=== PATIENT | male | born 1970 | race Caucasian/White ===

== ENCOUNTER 2017-02-08 11:09 | Emergency (ER) | payer SELFPAY ==
[~2017-02-08] VITALS: Ht 172.7 cm; Wt 81.3 kg
[2017-02-08 11:12] VITALS: BP 106/85; PULSE 78; TEMP 98.3
== END 2017-02-08 13:25 | disposition home or self-care (01) ==
LOC: COL.ER 11:09
DX: M72.2 Plantar fascial fibromatosis (principal)

== ENCOUNTER 2017-11-07 09:39 | Emergency (ER) | payer SELFPAY ==
[~2017-11-07] VITALS: Ht 172.7 cm; Wt 78.7 kg
[2017-11-07 09:47] VITALS: TEMP 98.6
[2017-11-07] MEDS ORDERED: ULTRAM 50MG TAB50 MG PO (11:27)
[2017-11-07 11:40] VITALS: BP 125/76; PULSE 85
== END 2017-11-07 11:40 | disposition home or self-care (01) ==
LOC: COL.ER 09:39
DX: M75.22 Bicipital tendinitis, left shoulder (principal); F17.210 Nicotine dependence, cigarettes, uncomplicated; X58.XXXA Exposure to other specified factors, initial encounter